=== PATIENT | female | born 1970 | race African-American/Black ===

== ENCOUNTER 2018-08-25 19:40 | Emergency (ER) | payer MEDICARE ==
--- NOTE | 2018-08-25 21:45 | ULT ---
RIGHT LOWER EXTREMITY VENOUS DUPLEX EXAM: 08/25/18 INDICATION: Right lower extremity pain and edema. Veins of the right lower extremity evaluated with color doppler and spectral analysis and compression . Deep veins of right lower extremity show normal blood flow and compression. No evidence of DVT. IMPRESSION: No evidence of right lower extremity DVT. POS: [facility]
== END 2018-08-25 22:04 | disposition home or self-care (01) ==
LOC: ERS 19:40
DX: M25.472 Effusion, left ankle (principal); M25.471 Effusion, right ankle; F31.9 Bipolar disorder, unspecified